=== PATIENT | female | born 1990 | race Caucasian/White ===

== ENCOUNTER → 2020-08-30 16:13 | Observation (INO) ==
[2020-08-30 14:48] LABS: Basophils % 0.2 %; Eosinophils % 0.2 %; Hematocrit 33.5 % (35.3-44.9); Hemoglobin 11.3 g/dL (11.5-15.4); Immature Granulocytes % 0.5 % (0-4); Lymphocytes % 15.3 %; Mean Corpuscular HGB Conc 33.7 g/dL (31.6-35.5); Mean Corpuscular Hemoglobin 31.4 pg (28.0-33.3); Mean Corpuscular Volume 93.1 fL (83.0-100.0); Mean Platelet Volume 10.9 fL (9.4-12.4); Monocytes # 0.8 K/mcL (0.0-1.3); Monocytes % 5.8 %; Neutrophils # 10.2 K/mcL (1.6-8.9); Platelet Count 286 K/mcL (140-400); Red Cell Distribution Width 13.2 % (11.5-14.5)
[~2020-08-30 16:13] MED LIST: Ringers Solution, Lactated 1,000 ML IVC ONE
== END | disposition home or self-care (01) ==
LOC: 1NENULAB
PROVIDERS: ADMIT Registered Nurse; ATTEND Registered Nurse

== ENCOUNTER 2020-12-04 05:05 | Inpatient (IN) ==
[~2020-12-04 05:05] MED LIST changes: +*HR* Nalbuphine 10 MG/ML AMPUL IV PRN; +Famotidine 20 MG/2 ML VIAL IVP PRN; +Lidocaine 1% 20 ML MDV INFILT PRN; +Metoclopramide 10 MG/2 ML VIAL IVP PRN; +Naloxone 0.4 MG/ML INJ IVP PRN; +Ondansetron 4 MG/2 ML VIAL IVP PRN; +Penicillin G Potassium 5,000,000 UNIT in 0.9 % Sodium Chloride Mini Bag 100 ML IVPB ONE; -Ringers Solution, Lactated 1,000 ML IVC ONE
[2020-12-04] MEDS: Ringers Solution, Lactated 1,000 ML IVC SCH ×3 (05:10→12:56)
[2020-12-04 05:40] LABS: Amphetamine Screen,Urine Negative ng/mL (Cutoff=1000); Barbiturate Screen,Urine Negative ng/mL (Cutoff=200); Benzodiazepines Screen,Urine Negative ng/mL (Cutoff=200); Cannabinoid Screen,Urine Negative ng/mL (Cutoff = 50); Cocaine Screen,Urine Negative ng/mL (Cutoff= 300); Creatinine,Urine 85 mg/dL; Opiate Screen,Urine Negative ng/mL (Cutoff=300); Phencyclidine Screen,Urine Negative ng/mL (Cutoff=25); Protein/Creatinine Ratio,Urine 0.15 mg/mg (0.00-0.20)
[2020-12-04 05:41] LABS: Basophils % 0.3 %; Eosinophils % 0.3 %; Hematocrit 38.4 % (35.3-44.9); Hemoglobin 13.4 g/dL (11.5-15.4); Immature Granulocytes % 0.7 % (0-4); Lymphocytes % 22.2 %; Mean Corpuscular HGB Conc 34.9 g/dL (31.6-35.5); Mean Corpuscular Volume 91.6 fL (83.0-100.0); Mean Platelet Volume 12.9 fL (9.4-12.4); Monocytes # 0.7 K/mcL (0.0-1.3); Monocytes % 7.8 %; Neutrophils # 6.2 K/mcL (1.6-8.9); Platelet Count 211 K/mcL (140-400); Red Blood Count 4.19 M/mcL (3.82-4.97); Red Cell Distribution Width 13.2 % (11.5-14.5); Segmented Neutrophils % 68.7 %
[2020-12-04 05:51] LABS: Alanine Aminotransferase 24 Units/L (7-52); Aspartate Amino Transferase 21 Units/L (13-39); BUN/Creatinine Ratio 14 (6-26); Blood Urea Nitrogen 8 mg/dL (6-20); Lactate Dehydrogenase 149 Units/L (140-271); Uric Acid 6.9 mg/dL (2.3-7.6); eGFR For African Americans > 60 (> 60); eGFR For Non-African Americans > 60 (> 60)
[2020-12-04] MEDS: miSOPROStoL 25 MCG TABLET PO SCH ×2 (06:52→09:39)
[2020-12-04] MEDS ORDERED: Terbutaline 1 MG/ML VIAL SQ ONE (07:05)
[2020-12-04] MEDS ORDERED: EPHEDrine 50 MG/ML VIAL IVP PRN (07:17)
[2020-12-04] MEDS ORDERED: Epidural Premix (fent/bupiv) 110 ML EP SCH (07:30)
[2020-12-04] MEDS: Penicillin G Potassium 2,500,000 UNIT/105 ML MLS IVPB SCH ×2 (08:42→12:59)
[2020-12-04] MEDS ORDERED: Oxytocin 20 units/ LR 1000 mL 20 UNIT/1,000 ML BAG IVC ONE (10:17)
[2020-12-04] MEDS ORDERED: Oxytocin 20 units/ LR 1000 mL 20 UNIT/1,000 ML BAG IVC SCH ×2 (10:30→17:25)
[2020-12-04] MEDS ORDERED: 0.9 % Sodium Chloride 500 ML ONE (10:38)
[2020-12-04 11:14] LABS: Influenza A PCR Negative (Negative); Influenza B PCR Negative (Negative); Resp. Syncytial Virus PCR Negative (Negative)
[2020-12-04 11:27] LABS: SARS-CoV-2 by PCR (In House) Negative (Negative)
[2020-12-04] MEDS ORDERED: Lanolin 7 G OINT...G. TP PRN (17:25)
[2020-12-04] MEDS ORDERED: Rho Immune Globulin 1,500 UNIT SYRINGE IM PRN (17:25)
[2020-12-04] MEDS ORDERED: Benzocaine/Menthol 56 GM AEROSOL SPRAY TP PRN (17:25)
[2020-12-04] MEDS ORDERED: *HR* OxyCODONE Immed Rel 5 MG TABLET PO PRN (17:25)
[2020-12-04] MEDS: Ibuprofen 600 MG TABLET PO SCH (17:44)
[2020-12-04] MEDS: Acetaminophen 325 MG TABLET PO SCH (17:44)
[2020-12-05] MEDS: Ibuprofen 600 MG TABLET PO SCH ×3 (00:45→12:04)
[2020-12-05] MEDS: Acetaminophen 325 MG TABLET PO SCH ×3 (00:46→12:04)
[2020-12-05 05:08] LABS: Basophils % 0.2 %; Eosinophils % 0.1 %; Hematocrit 32.8 % (35.3-44.9); Immature Granulocytes % 0.5 % (0-4); Mean Corpuscular HGB Conc 33.8 g/dL (31.6-35.5); Red Cell Distribution Width 13.2 % (11.5-14.5)
[2020-12-05 05:10] LABS: Hemoglobin 11.1 g/dL (11.5-15.4); Immature Platelets 10.2 % (1.1-6.1); Lymphocytes # 2.4 K/mcL (0.6-4.6); Lymphocytes % 15.6 %; Mean Corpuscular Hemoglobin 31.3 pg (28.0-33.3); Mean Corpuscular Volume 92.4 fL (83.0-100.0); Mean Platelet Volume 12.9 fL (9.4-12.4); Monocytes # 1.1 K/mcL (0.0-1.3); Monocytes % 6.9 %; Neutrophils # 11.7 K/mcL (1.6-8.9); Platelet Count 171 K/mcL (140-400); Red Blood Count 3.55 M/mcL (3.82-4.97); Segmented Neutrophils % 76.7 %; White Blood Count 15.3 K/mcL (4.3-11.1)
[2020-12-05 05:30] LABS: Alanine Aminotransferase 25 Units/L (7-52); Aspartate Amino Transferase 36 Units/L (13-39); BUN/Creatinine Ratio 12 (6-26); Blood Urea Nitrogen 7 mg/dL (6-20); Lactate Dehydrogenase 210 Units/L (140-271); Uric Acid 6.8 mg/dL (2.3-7.6); eGFR For African Americans > 60 (> 60); eGFR For Non-African Americans > 60 (> 60)
[2020-12-05 05:38] VITALS: TEMP 98
[2020-12-05 08:10] VITALS: BP 125/85; PULSE 80; O2SAT 98
[2020-12-05] MEDS ORDERED: Prenatal Vit/FA 1 EACH TABLET PO SCH (09:00)
[2020-12-05] MEDS ORDERED: Loratadine 10 MG TABLET PO SCH (09:00)
== END 2020-12-05 18:00 | disposition home or self-care (01) | DRG 807 ==
LOC: 1NENULAB → 1NENUOBS 19:43
PROVIDERS: ADMIT Registered Nurse; ATTEND Registered Nurse